=== PATIENT | male | born 1940 | race Caucasian/White ===

== ENCOUNTER 2019-03-04 08:00 | Outpatient (CLI) | payer MEDICARE, OTHER ==
[2019-03-04 19:08] LABS: ALBUMIN 3.7 g/dL (3.2-5.5); ALBUMIN/GLOBULIN RATIO 1.1 (1.0-2.2); BILIRUBIN,TOTAL 0.7 mg/dL (0.2-1.0); CALCIUM 9.3 mg/dL (8.5-10.3); CREATININE 0.6 mg/dL (0.6-1.2); TOTAL PROTEIN 7.2 g/dL (6.7-8.2)
[2019-03-04 19:12] LABS: BASOPHILS % (AUTO) 0.5 %; EOSINOPHILS # (AUTO) 0.1 10^3/uL (0.0-0.7); EOSINOPHILS % (AUTO) 0.8 %; HGB - HEMOGLOBIN 12.7 g/dL (14.0-18.0); LYMPHOCYTES # (AUTO) 1.1 10^3/uL (1.5-3.5); LYMPHOCYTES % (AUTO) 13.3 %; MEAN CORPUSCULAR HEMOGLOBIN 31.9 pg (27.0-31.0); MEAN CORPUSCULAR HGB CONC 33.3 g/dL (32.0-36.0); MEAN CORPUSCULAR VOLUME 95.9 fL (80.0-94.0); MEAN PLATELET VOLUME 7.6 fL (7.4-11.4); MONOCYTES # (AUTO) 0.6 10^3/uL (0.0-1.0); MONOCYTES % (AUTO) 6.7 %; NEUTROPHILS # (AUTO) 6.6 10^3/uL (1.5-6.6); NEUTROPHILS % (AUTO) 78.7 %; PLT - PLATELET COUNT 217 10^3/uL (130-450); RED BLOOD COUNT 3.97 10^6/uL (4.70-6.10); RED CELL DISTRIBUTION WIDTH 15.5 % (12.0-15.0); WHITE BLOOD COUNT 8.4 x10^3/uL (4.8-10.8)
== END 2019-03-04 08:01 | disposition home or self-care (01) ==
LOC: LAB.WCP 08:00
PROVIDERS: ATTEND Physician Assistant
DX: E22.2 Syndrome of inappropriate secretion of antidiuretic hormone (principal)
CPT/HCPCS: 36415; 80053; 85025

== ENCOUNTER 2019-03-09 18:45 | Emergency (ER) | payer MEDICARE, OTHER ==
[2019-03-09 19:23] LABS: BILIRUBIN,URINE NEGATIVE (NEGATIVE); CLARITY,URINE CLOUDY (CLEAR); GLUCOSE, URINE (UA) NEGATIVE (NEGATIVE); KETONES,URINE (UA) NEGATIVE (NEGATIVE); LEUKOCYTE ESTERASE, URINE NEGATIVE (NEGATIVE); NITRITE,URINE NEGATIVE (NEGATIVE); OCCULT BLOOD,URINE NEGATIVE (NEGATIVE); PH,URINE 5.5 PH (5.0-7.5); PROTEIN,URINE NEGATIVE (NEGATIVE); UROBILINOGEN,URINE 0.2 (NORMAL) E.U./dL (NORMAL)
[2019-03-09 19:37] LABS: AMORPHOUS SEDIMENT,UR Marked /LPF; BACTERIA,URINE None Seen /HPF (None Seen); RBC,URINE None Seen /HPF (0-5); SQUAMOUS EPITHELIAL CELL,UR NONE SEEN (<= Few)
[2019-03-09 19:38] LABS: MUCUS,URINE Few Strands
[2019-03-09 19:48] LABS: BASOPHILS % (AUTO) 0.5 %; EOSINOPHILS # (AUTO) 0.1 10^3/uL (0.0-0.7); EOSINOPHILS % (AUTO) 1.1 %; HGB - HEMOGLOBIN 12.6 g/dL (14.0-18.0); LYMPHOCYTES # (AUTO) 1.3 10^3/uL (1.5-3.5); LYMPHOCYTES % (AUTO) 18.4 %; MEAN CORPUSCULAR HEMOGLOBIN 32.5 pg (27.0-31.0); MEAN CORPUSCULAR HGB CONC 34.4 g/dL (32.0-36.0); MEAN CORPUSCULAR VOLUME 94.4 fL (80.0-94.0); MEAN PLATELET VOLUME 7.3 fL (7.4-11.4); MONOCYTES # (AUTO) 0.5 10^3/uL (0.0-1.0); NEUTROPHILS # (AUTO) 5.3 10^3/uL (1.5-6.6); PLT - PLATELET COUNT 187 10^3/uL (130-450); RED BLOOD COUNT 3.88 10^6/uL (4.70-6.10); RED CELL DISTRIBUTION WIDTH 15.1 % (12.0-15.0); WHITE BLOOD COUNT 7.3 x10^3/uL (4.8-10.8)
[2019-03-09 19:59] LABS: ALBUMIN 3.7 g/dL (3.2-5.5); ALBUMIN/GLOBULIN RATIO 1.1 (1.0-2.2); BILIRUBIN,TOTAL 0.9 mg/dL (0.2-1.0); CALCIUM 9.2 mg/dL (8.5-10.3); CREATININE 0.8 mg/dL (0.6-1.2)
--- NOTE | 2019-03-09 23:53 | ED Physician Documentation ---
PD HPI ALTERED MENTAL STATUS - Stated complaint Stated Complaint: CHANGE IN MENTAL STATUS - Chief complaint Chief Complaint: Neuro - History obtained from History obtained from: Patient, Family - History of Present Illness Timing - onset: How many weeks ago (2) Timing - duration: Weeks (2) Timing - details: Gradual onset, Still present, Waxing and waning Quality / character: Other (flat affect) Associated symptoms: No: Fever, Headache, Stiff neck, Dyspnea, Cough, NVD, Urinary sx, General weakness, Focal weakness, Seizure activity, Syncope Contributing factors: No: Anticoagulated Basline status: Alert and oriented X 3, Ambulatory, Independent Similar symptoms before: Diagnosis (metabolic encephalopathy) Recently seen: Clinic, Admitted - Additional information Additional information: 78-year-old male who is been a long time visitor to [facility] and has lived in [place] for the past 45 years has moved to [facility] after selling his home. He has had some issues with urinary tract infection recurring and requiring admission to the hospital. During those hospitalizations he was noted to have some change in his mental status and he was noted at that time to be confused. His states that now she is not finding that he is confused at all and answers all questions appropriately but has a very flat affect and she is concerned that he has a recurrence of this infection. Review of Systems Constitutional: denies: Fever Eyes: denies: Decreased vision Ears: denies: Ear pain Nose: denies: Rhinorrhea / runny nose, Congestion Throat: denies: Sore throat Cardiac: denies: Chest pain / pressure, Palpitations Respiratory: denies: Dyspnea, Cough GI: denies: Abdominal Pain, Nausea, Vomiting : denies: Dysuria, Frequency Skin: denies: Rash Musculoskeletal: denies: Neck pain, Back pain, Extremity pain Neurologic: denies: Generalized weakness, Focal weakness, Numbness, Difficulty speaking, Near syncope, Confused, Altered mental status, Headache, Head injury, LOC Psychiatric: denies: Depressed PD PAST MEDICAL HISTORY - Past Medical History Past Medical History: Yes Cardiovascular: Congestive heart failure, Hypertension, High cholesterol, Coronary artery disease, Peripheral Vascular Disease, [place] Respiratory: None Neuro: None Endocrine/Autoimmune: Type 2 diabetes GI: GERD : Benign prostate hypertrophy, Nocturia, Frequency HEENT: Other Psych: None Musculoskeletal: None Derm: None - Past Surgical History Past Surgical History: Yes General: Appendectomy Cardiovascular: CABG, Coronary stent, Angioplasty HEENT: Cataracts, Tonsil/Adenoidectomy - Present Medications Home Medications: Ambulatory Orders Medication Instructions Recorded Confirmed Aspirin Chewable [[place] Richard 81 mg PO DAILY 03/09/19 03/09/19 Aspirin] Atenolol 50 mg PO 03/09/19 Atorvastatin [Lipitor] 0 mg 03/09/19 Hydrochlorothiazide 12.5 mg PO 03/09/19 Lactobacillus Acidophilus 1 each PO 03/09/19 [Probiotic Acidophilus] Lansoprazole 30 mg PO 03/09/19 Methenamine Hippurate 1 gm PO 03/09/19 Ramipril 10 mg PO 03/09/19 Sodium Chloride 1 gm PO 03/09/19 Tamsulosin [Flomax] 0.4 mg PO DAILY 03/09/19 03/09/19 amLODIPine [Norvasc] 5 mg PO ONCE 03/09/19 03/09/19 - Allergies Allergies/Adverse Reactions: Allergies Allergy/AdvReac Type Severity Reaction Status Date / Time No Known Drug Allergies Allergy Verified 03/09/19 19:05 - Social History Does the pt smoke?: Yes Smoking Status: Current every day smoker Does the pt drink ETOH?: Yes Does the pt have substance abuse?: No - Immunizations Immunizations are current?: No Immunizations: TDAP >10years/unknown - POLST Patient has POLST: Yes PD ED PE NORMAL - Vitals Vital signs reviewed: Yes (hypertensive ) - General General: Alert and oriented X 3, No acute distress, Well developed/nourished, Other (super flat affect but perfect answers. ) - HEENT HEENT: Atraumatic, PERRL, EOMI - Neck Neck: Supple, no meningeal sign, No bony TTP - Cardiac Cardiac: RRR, No murmur - Respiratory Respiratory: No respiratory distress, Clear bilaterally - Abdomen Abdomen: Soft, Non tender - Back Back: No CVA TTP, No spinal TTP - Derm Derm: Normal color, Warm and dry, No rash - Extremities Extremities: No deformity, No edema - Neuro Neuro: Alert and oriented X 3, podopediatrician 2-12 intact, No motor deficit, No sensory deficit, Normal speech Eye Opening: Spontaneous Motor: Obeys Commands Verbal: Oriented GCS Score: 15 - Psych Psych: Normal mood, Other (affect is super flat ) Results - Vitals Vitals: Vital Signs - 24 hr 03/09/19 03/09/19 03/09/19 19:03 20:58 23:33 Temperature 37 C 36.9 C Heart Rate 97 80 87 Respiratory 20 15 17 Rate Blood Pressure 131/80 H 147/78 H 153/92 H O2 Saturation 96 96 96 03/10/19 03/10/19 01:24 02:45 Temperature 36.5 C 36.6 C Heart Rate 75 67 Respiratory 14 Rate Blood Pressure 140/85 H 127/80 O2 Saturation 96 99 Oxygen O2 Source Room air - Labs Labs: Laboratory Tests 03/09/19 03/09/19 03/09/19 17:00 19:41 19:41 WBC 7.3 RBC 3.88 L Hgb 12.6 L Hct 36.6 L MCV 94.4 H MCH 32.5 H MCHC 34.4 RDW 15.1 H Plt Count 187 MPV 7.3 L Neut # (Auto) 5.3 Lymph # (Auto) 1.3 L [place] # (Auto) 0.5 Eos # (Auto) 0.1 Baso # (Auto) 0.0 Absolute Nucleated RBC 0.00 Nucleated RBC % 0.0 Sodium 142 Potassium 3.8 Chloride 106 Carbon Dioxide 24 Anion Gap 12.0 BUN 20 Creatinine 0.8 Estimated GFR (MDRD) 93 Glucose 162 H Calcium 9.2 Total Bilirubin 0.9 AST 22 ALT 25 Alkaline Phosphatase 82 Total Protein 7.0 Albumin 3.7 Globulin 3.3 Albumin/Globulin Ratio 1.1 Lipase 71 H Urine Color YELLOW Urine Clarity CLOUDY Urine pH 5.5 Ur Specific [place] 1.020 Urine Protein NEGATIVE Urine Glucose (UA) NEGATIVE Urine Ketones NEGATIVE Urine Occult Blood NEGATIVE Urine Nitrite NEGATIVE Urine Bilirubin NEGATIVE Urine Urobilinogen 0.2 (NORMAL) Ur Leukocyte Esterase NEGATIVE Urine RBC None Seen Urine WBC 0-3 Ur Squamous Epith Cells NONE SEEN Amorphous Sediment Marked Urine Bacteria None Seen Urine Mucus Few Strands Ur Microscopic Review INDICATED Urine Culture Comments NOT INDICATED Procedures - IVC sono (time) 2345 Bedside IVC sono: IVC measures (cm) (1.33), Significant dehydration PD MEDICAL DECISION MAKING - ED course Complexity details: reviewed old records, reviewed results, re-evaluated patient, considered differential, d/w patient, d/w family ED course: 78 y/o male with flat affect. Registers well otherwise. The patient does not have any cogwheel rigidity to his upper extremities to indicate Parkinson's and he does not appear to have confusion or dementia. He does appear withdrawn and his affect and he is dehydrated on interrogation of the inferior vena cava. He is administered saline and after discussion with he and his about the nature of their moved to [facility] and what it means to him it was evident that he has significant feelings about this change in his life. When this was fully acknowledged and the patient was able [place] seemed to lift the patient's affect. I considered rare neurologic conditions of possibility for the patient's blunted affect but after full consideration it does appear that his flattened affect today is the finding and there does appear to be a reason for this. He does have follow up with a primary here on [facility]. Departure - Departure Disposition: 01 Home, Self Care Clinical Impression: Stress reaction causing mixed disturbance of emotion and conduct Condition: Stable Instructions: ED Stress React Follow-Up: Halle Wiggins PA [Primary Care Provider] - Discharge Date/Time: 03/10/19 02:47
[2019-03-10] MEDS ORDERED: SODIUM CHLORIDE 0.9% 1,000 ML IV ONE (00:37)
[2019-03-10 03:12] VITALS: BP 127/80
== END 2019-03-10 02:47 | disposition home or self-care (01) ==
LOC: ED 18:45
DX: F43.8 Other reactions to severe stress (principal); F91.8 Other conduct disorders; E86.0 Dehydration; I10 Essential (primary) hypertension; E11.51 Type 2 diabetes mellitus with diabetic peripheral angiopathy without gangrene; F17.200 Nicotine dependence, unspecified, uncomplicated; Z79.82 Long term (current) use of aspirin
CPT/HCPCS: 36415; 80053; 81001; 81003; 83690; 85025; 87086; 96360; 99283; 99284

== ENCOUNTER 2019-03-12 18:07 | Outpatient (CLI) | payer MEDICARE, OTHER | END 2019-03-12 18:08 | disposition critical access hospital (66) | LOC: EMS 18:07 | PROVIDERS: ATTEND Surgery | DX: R46.4 Slowness and poor responsiveness (principal); R53.1 Weakness | CPT/HCPCS: A0425; A0429 ==

== ENCOUNTER 2019-03-12 18:33 | Observation (INO) | payer MEDICARE, OTHER ==
[2019-03-12 19:01] LABS: BASOPHILS % (AUTO) 0.2 %; EOSINOPHILS % (AUTO) 0.4 %; HGB - HEMOGLOBIN 12.1 g/dL (14.0-18.0); LYMPHOCYTES # (AUTO) 0.9 10^3/uL (1.5-3.5); LYMPHOCYTES % (AUTO) 10.3 %; MEAN CORPUSCULAR HEMOGLOBIN 31.4 pg (27.0-31.0); MEAN CORPUSCULAR HGB CONC 33.2 g/dL (32.0-36.0); MEAN CORPUSCULAR VOLUME 94.5 fL (80.0-94.0); MEAN PLATELET VOLUME 9.6 fL (7.4-11.4); MONOCYTES # (AUTO) 0.4 10^3/uL (0.0-1.0); MONOCYTES % (AUTO) 5.1 %; NEUTROPHILS % (AUTO) 83.6 %; PLT - PLATELET COUNT 176 10^3/uL (130-450); RED BLOOD COUNT 3.85 10^6/uL (4.70-6.10); RED CELL DISTRIBUTION WIDTH 14.6 % (12.0-15.0); WHITE BLOOD COUNT 8.4 x10^3/uL (4.8-10.8)
[2019-03-12 19:16] LABS: ACETAMINOPHEN < 10 ug/mL (10-30); ALBUMIN 3.9 g/dL (3.2-5.5); ALBUMIN/GLOBULIN RATIO 1.4 (1.0-2.2); ALKALINE PHOSPHATASE 74 IU/L (42-121); ALT ALANINE AMINOTRANSFERASE 23 IU/L (10-60); AST ASPARTATE AMINOTRANSFERASE 19 IU/L (10-42); BILIRUBIN,TOTAL 1.2 mg/dL (0.2-1.0); BUN - BLOOD UREA NITROGEN 14 mg/dL (6-20); CALCIUM 9.1 mg/dL (8.5-10.3); CARBON DIOXIDE - CO2 24 mmol/L (21-32); CHLORIDE 105 mmol/L (101-111); CREATININE 0.7 mg/dL (0.6-1.2); GFR - MDRD 109 (>89); GLUCOSE 170 mg/dL (70-100); LIPASE 63 U/L (22-51); SALICYLATE < 6.0 mg/dL; SODIUM 139 mmol/L (135-145); TOTAL PROTEIN 6.7 g/dL (6.7-8.2)
--- NOTE | 2019-03-12 19:16 | ED Physician Documentation ---
History of Present Illness - Stated complaint Stated Complaint: WEAKNESS - Chief complaint Chief Complaint: Neuro - History obtained from History obtained from: Patient, Family - History of Present Illness Timing: Today Pain level max: 0 Pain level now: 0 - Additonal information Additional information: 78-year-old male presents to the emergency department with an episode of altered mental status and falling to the left today. states that his face became very flat, his arms and legs became "stiffer than usual" and when he walked he would fall to the left. This lasted approximately 30 minutes. Now resolved. Had similar symptoms a few days ago, thought to be possible stress reaction? No history of stroke. Patient is a poor historian, but is a very good historian. 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 Has had chronic recurrent UTIs as well Nothing made this better or worse Review of Systems Ten Systems: 10 systems reviewed and negative Constitutional: denies: Fever, Chills Eyes: denies: Decreased vision Ears: denies: Ear pain Nose: denies: Rhinorrhea / runny nose, Congestion Throat: denies: Sore throat Cardiac: denies: Chest pain / pressure Respiratory: denies: Cough GI: denies: Nausea, Vomiting, Diarrhea : denies: Dysuria Skin: denies: Rash Musculoskeletal: denies: Neck pain, Back pain Neurologic: denies: Numbness, Syncope, Headache PD PAST MEDICAL HISTORY - Past Medical History Past Medical History: Yes Cardiovascular: Congestive heart failure, Hypertension, High cholesterol, Coronary artery disease, Peripheral Vascular Disease, [place] Respiratory: None Neuro: None Endocrine/Autoimmune: Type 2 diabetes GI: GERD : Benign prostate hypertrophy, Nocturia, Frequency HEENT: Other Psych: None Musculoskeletal: None Derm: None - Past Surgical History Past Surgical History: Yes General: Appendectomy Cardiovascular: CABG, Coronary stent, Angioplasty HEENT: Cataracts, Tonsil/Adenoidectomy - Present Medications Home Medications: Ambulatory Orders Medication Instructions Recorded Confirmed Aspirin Chewable [[facility] Richard 81 mg PO DAILY 03/09/19 03/12/19 Aspirin] Atenolol 50 mg PO DAILY 03/09/19 03/12/19 Atorvastatin [Lipitor] 40 mg PO DAILY PM 03/09/19 03/12/19 Lansoprazole 30 mg PO BID 03/09/19 03/12/19 Ramipril 10 mg PO DAILY 03/09/19 03/12/19 amLODIPine [Norvasc] 5 mg PO BID 03/09/19 03/12/19 - Allergies Allergies/Adverse Reactions: Allergies Allergy/AdvReac Type Severity Reaction Status Date / Time No Known Drug Allergies Allergy Verified 03/12/19 18:41 - Social History Does the pt smoke?: Yes Smoking Status: Current every day smoker Does the pt drink ETOH?: Yes Does the pt have substance abuse?: No - Immunizations Immunizations are current?: No Immunizations: TDAP >10years/unknown - POLST Patient has POLST: Yes Results - Vitals Vitals: Vital Signs - 24 hr 03/12/19 03/12/19 18:38 20:00 Temperature 37.2 C Heart Rate 81 65 Respiratory 24 21 Rate Blood Pressure 156/82 H 141/83 H O2 Saturation 96 94 Oxygen O2 Source Room air - EKG (time done) 1840 Rate: Rate (enter#) (72) Rhythm: NSR Intervals: Normal OK, RBBB - Labs Labs: Laboratory Tests 03/12/19 03/12/19 03/12/19 18:55 18:55 18:55 WBC 8.4 RBC 3.85 L Hgb 12.1 L Hct 36.4 L MCV 94.5 H MCH 31.4 H MCHC 33.2 RDW 14.6 Plt Count 176 MPV 9.6 Neut # (Auto) 7.0 H Lymph # (Auto) 0.9 L [place] # (Auto) 0.4 Eos # (Auto) 0.0 Baso # (Auto) 0.0 Absolute Nucleated RBC 0.00 Nucleated RBC % 0.0 Sodium 139 Potassium 3.4 L Chloride 105 Carbon Dioxide 24 Anion Gap 10.0 BUN 14 Creatinine 0.7 Estimated GFR (MDRD) 109 Glucose 170 H Calcium 9.1 Total Bilirubin 1.2 H AST 19 ALT 23 Alkaline Phosphatase 74 Total Protein 6.7 Albumin 3.9 Globulin 2.8 Albumin/Globulin Ratio 1.4 Lipase 63 H TSH 1.29 Urine Color Urine Clarity Urine pH Ur Specific [place] Urine Protein Urine Glucose (UA) Urine Ketones Urine Occult Blood Urine Nitrite Urine Bilirubin Urine Urobilinogen Ur Leukocyte Esterase Ur Microscopic Review Urine Culture Comments Salicylates < 6.0 Urine Opiates Screen Ur Oxycodone Screen Urine Methadone Screen Ur Propoxyphene Screen Acetaminophen < 10 L Ur Barbiturates Screen Ur Tricyclics Screen Ur Phencyclidine Scrn Ur Amphetamine Screen U Methamphetamines Scrn U Benzodiazepines Scrn Urine Cocaine Screen U Cannabinoids Screen Ethyl Alcohol < 5.0 03/12/19 19:20 WBC RBC Hgb Hct MCV MCH MCHC RDW Plt Count MPV Neut # (Auto) Lymph # (Auto) [place] # (Auto) Eos # (Auto) Baso # (Auto) Absolute Nucleated RBC Nucleated RBC % Sodium Potassium Chloride Carbon Dioxide Anion Gap BUN Creatinine Estimated GFR (MDRD) Glucose Calcium Total Bilirubin AST ALT Alkaline Phosphatase Total Protein Albumin Globulin Albumin/Globulin Ratio Lipase TSH Urine Color YELLOW Urine Clarity CLEAR Urine pH 5.5 Ur Specific [place] <=1.005 Urine Protein NEGATIVE Urine Glucose (UA) NEGATIVE Urine Ketones NEGATIVE Urine Occult Blood NEGATIVE Urine Nitrite NEGATIVE Urine Bilirubin NEGATIVE Urine Urobilinogen 0.2 (NORMAL) Ur Leukocyte Esterase NEGATIVE Ur Microscopic Review NOT INDICATED Urine Culture Comments NOT INDICATED Salicylates Urine Opiates Screen NEGATIVE Ur Oxycodone Screen NEGATIVE Urine Methadone Screen NEGATIVE Ur Propoxyphene Screen NEGATIVE Acetaminophen Ur Barbiturates Screen NEGATIVE Ur Tricyclics Screen NEGATIVE Ur Phencyclidine Scrn NEGATIVE Ur Amphetamine Screen NEGATIVE U Methamphetamines Scrn NEGATIVE U Benzodiazepines Scrn NEGATIVE Urine Cocaine Screen NEGATIVE U Cannabinoids Screen NEGATIVE Ethyl Alcohol - Rads (name of study) Head CT Radiology: Prelim report reviewed, EMP read contemporaneously, See rad report (No acute findings. Mild to moderate brain atrophy, mild scattered white matter disease with mild dense atherosclerotic disease) PD MEDICAL DECISION MAKING - ED course Complexity details: reviewed results, re-evaluated patient, considered differential, d/w patient, d/w family ED course: 78-year-old male with altered mental status of unclear etiology. He also lists to the left side and has trouble walking, possible TIA? Possible partial seizures? Possible Parkinson's or other movement disorder? Will place in observation for further evaluation and likely MRI. Discussed the case with Dr. Peterson, hospitalist who accepts. This document was made in part using voice recognition software. While efforts are made to proofread this document, sound alike and grammatical errors may occur. Departure - Departure Disposition: ED Place in Observation Clinical Impression: TIA (transient ischemic attack) Condition: Good Discharge Date/Time: 03/12/19 20:15 NIHSS - Time Time: 19:00 - Level of Consciousness Level of consciousness: (0) Alert, Keenly responsive LOC Questions: (0) Answers both Q's correct LOC Commands: (0) Performs both correctly - Gaze Best Gaze: (0) Normal - Visual Visual: (0) No loss - Facial Palsy Facial Palsy: (0) Normal, symmetrical movement - Motor Arms (both separate) Motor Arm (right): (0) No drift Motor Arm (left): (0) No drift - Motor Legs (both separate) Motor Leg (right): (0) No drift Motor Leg (left): (0) No drift - Limb Ataxia Limb Ataxia: (0) Absent - Sensory Sensory: (0) Normal - Best Language Best Language: (0) No aphasia - Dysarthria Dysarthria: (0) Normal - Extinction and Inattention (formally neg Extinction and inattention: (0) No abnormality - Total Score/Results Total Score/Result: 0
[2019-03-12 19:27] LABS: MUDS CUTOFF CONCENTRATIONS CUTOFF CONC BELOW:
[2019-03-12 19:35] LABS: BILIRUBIN,URINE NEGATIVE (NEGATIVE); GLUCOSE, URINE (UA) NEGATIVE (NEGATIVE); KETONES,URINE (UA) NEGATIVE (NEGATIVE); LEUKOCYTE ESTERASE, URINE NEGATIVE (NEGATIVE); NITRITE,URINE NEGATIVE (NEGATIVE); OCCULT BLOOD,URINE NEGATIVE (NEGATIVE); PH,URINE 5.5 PH (5.0-7.5); PROTEIN,URINE NEGATIVE (NEGATIVE); UROBILINOGEN,URINE 0.2 (NORMAL) E.U./dL (NORMAL)
[2019-03-12 19:38] LABS: CLARITY,URINE CLEAR (CLEAR)
[2019-03-12 19:52] LABS: AMPHETAMINE SCREEN,URINE NEGATIVE (NEGATIVE); BENZODIAZEPINES SCREEN, URINE NEGATIVE (NEGATIVE); COCAINE SCREEN URINE NEGATIVE (NEGATIVE); METHADONE SCREEN, URINE NEGATIVE (NEGATIVE); METHAMPHETAMINES SCREEN, URINE NEGATIVE (NEGATIVE); OPIATE SCREEN, URINE NEGATIVE (NEGATIVE); OXYCODONE SCREEN, URINE NEGATIVE (NEGATIVE); PROPOXYPHENE SCREEN, URINE NEGATIVE (NEGATIVE); TRICYCLIC ANTIDEPRESSANT,URINE NEGATIVE (NEGATIVE)
--- NOTE | 2019-03-12 20:05 | CT Report ---
Reason: ALOC, falls to the L Procedure Date: 03/12/2019 Accession Number: [id number] / [id number] Procedure: CT - HEAD WO CPT Code: FULL RESULT: EXAM: CT HEAD EXAM DATE: 03/12/2019 07:39 PM. CLINICAL HISTORY: Change in level of consciousness, falling to the left. COMPARISON: None. TECHNIQUE: Multiaxial CT images were obtained from the foramen magnum to the vertex. Reformats: Sagittal and coronal. IV contrast: None. In accordance with CT protocol optimization, one or more of the following dose reduction techniques were utilized for this exam: automated exposure control, adjustment of mA and/or KV based on patient size, or use of iterative reconstructive technique. Findings: Relevant images are indicated (image number, series number). There is no hemorrhage, mass or midline shift. Mild/moderate renal atrophy, mild scattered white matter disease, no acute arterial thrombosis of the major arteries. Basal cisterns are patent. Orbital contents negative mild dense calcific atherosclerotic disease. Skull intact, paranasal sinuses, mastoid air cells negative. Impressions: 1. No acute findings. 2. Mild/moderate brain atrophy, mild scattered white matter disease with mild dense atherosclerotic disease. RADIA
[2019-03-12] MEDS ORDERED: SODIUM CHLORIDE FLUSH 0.9% 10 ML SYRINGE IVP PRN (20:15)
[2019-03-12] MEDS ORDERED: ASPIRIN EC 325 MG TABLET PO SCH (20:28)
[2019-03-12] MEDS ORDERED: ASPIRIN EC 325 MG TABLET PO ONE (21:00)
--- NOTE | 2019-03-12 23:05 | HISTORY & PHYSICAL EXAMINATION ---
Chief Complaint - Chief Complaint Chief Complaint: neurologic changes History of Present Illness - Admitted From Admitted From:: [facility] ED - History Obtained From Records Reviewed: yes History obtained from: patient and spouse - History of Present Illness HPI Comment/Other: Patient seen on 03/12/19 at 2200pm Patient is a 78 y/o male who was brought to the ED by EMS for various acute neurologic changes which are transient in nature, occuring daily for the past 2 weeks. These consist of a flat affect, eyes appear void of life, arms just slump to his side as if they don't belong to his body, his gait is shuffling and he deviates to the left when he walks. He is usually fully alert and oriented during this episode and able to follow commands. This afternoon he experienced another episode when they were getting ready to leave there house. His was barely able to help him to the bedroom where he just slumped into the bed. He seemed confused at the time He had an episode on Saturday at an appointment. He was sent to [facility] ED where he was evaluated and discharged because his symptoms had resolved. It was thought to be due to stress at the time. His reports that he was recently admitted at [facility] for similar symptoms and underwent a work up which was mainly negative. He has history of frequent UTI with the last urine cultures being positive for ESBL + bacteria. He was on Invanz for a total of 10 days. 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 for which he had a CABGX4 then 23years later he underwent CABGX5. He was recently found to have a 4.5cm AAA. History - Past Medical History Cardiovascular: reports: Hypertension, High cholesterol, Coronary artery disease, Peripheral Vascular Disease, [place] Respiratory: reports: None Neuro: reports: None GI: reports: GERD : reports: Benign prostate hypertrophy, Nocturia, Frequency HEENT: reports: Other Psych: reports: None Musculoskeletal: reports: None Derm: reports: None MRSA Hx?: No Other Past Medical History: Extensive exposure to agent orange - Past Surgical History General: reports: Appendectomy Cardiovascular: reports: CABG, Coronary stent, Angioplasty HEENT: reports: Tonsil/Adenoidectomy - Family & Social History Family History Comment/Other: Father: Lymphoma. Brother 1: stomach cancer. Brother 2: prostate and colon cancer Living arrangement: At home Living Situation: With spouse/s.o. Social History Notes: Quit smoking in 1978. Smoked 3ppd X20 years. Rare alcohol consumption. No illicit drug use - POLST Patient has POLST: Yes POLST Status: DNR Meds/Allgy - Home Medications Home Medications: Ambulatory Orders Medication Instructions Recorded Confirmed Aspirin Chewable [St Richard 81 mg PO DAILY 03/09/19 03/12/19 Aspirin] Atenolol 50 mg PO DAILY 03/09/19 03/12/19 Atorvastatin [Lipitor] 40 mg PO DAILY PM 03/09/19 03/12/19 Lansoprazole 30 mg PO BID 03/09/19 03/12/19 Ramipril 10 mg PO DAILY 03/09/19 03/12/19 amLODIPine [Norvasc] 5 mg PO BID 03/09/19 03/12/19 - Allergies Allergies/Adverse Reactions: Allergies Allergy/AdvReac Type Severity Reaction Status Date / Time No Known Drug Allergies Allergy Verified 03/12/19 18:41 Review of Systems - Constitutional Constitutional: denies: Fever, Chills, Malaise, Weakness, Diaphoresis - Eyes Eyes: reports: Blurred vision. denies: Vision loss, Dipolpia - Ears, Nose & Throat Ears, Nose & Throat: denies: Tinnitus, Vertigo, Sore throat - Cardiovascular Cariovascular: reports: Irregular heart rate (regularly irregular). denies: Chest pain, Edema, Lightheadedness, Syncope, Exertional dyspnea - Respiratory Respiratory: denies: Wheezing, Snoring, SOB at rest, SOB with exertion - Gastrointestinal Gastrointestinal: denies: Abdominal pain, Abdominal distention, Constipation, Black stools - Genitourinary Genitourinary: denies: Dysuria, Frequency, Urgency, Incontinence, Flank pain - Musculoskeletal Musculoskeletal: denies: Muscle pain, Back pain, Joint pain - Integumentary Integumentary: denies: Rash, Pruritis, Lesions - Neurological Neurological: reports: Abnormal gait, Incoordination, Slurred speech. denies: Headache, Dizziness, Numbness, Memory problems, Seizures - Psychiatric Psychiatric: denies: Depression, Anxiety - Endocrine Endocrine: denies: Polyuria, Polydypsia - Hematologic/Lymphatic Hematologic/Lymphatic: denies: Anemia, Bruising, Petechiae Prior Level of Functionality: Patient is independent of activities of daily living. Lives with . Still drives. Walks unaided. Exam - Vital Signs Vital Signs: Vital Signs x48h Temp Pulse Pulse Resp BP BP Pulse Ox 03/12/19 20:47 37.0 C 72 20 146/70 H 96 03/12/19 20:00 65 21 141/83 H 94 03/12/19 18:38 37.2 C 81 24 156/82 H 96 - Physical Exam General Appearance: positive: No acute distress, Alert, Other (flat affect) Eyes Bilateral: positive: Normal inspection, PERRL, EOMI ENT: positive: ENT inspection nml, No signs of dehydration Neck: positive: Nml inspection, No JVD, Trachea midline Respiratory: positive: Chest non-tender, No respiratory distress, Breath sounds nml. negative: Wheezes, Rales, Rhonchi Cardiovascular: positive: No murmur, Other (regularly irregular) Abdomen: positive: Non-tender, No organomegaly, Nml bowel sounds, No distention. negative: Guarding, Rebound Back: positive: Nml inspection Skin: positive: Color nml, No rash, Warm Extremities: positive: Non-tender, Full ROM, Nml appearance, Pedal edema Neurologic/Psychiatric: positive: Oriented x3, CN's nml (2-12), Depressed mood/affect (flat affect), Other (finger to nose test positive heel to mccarty negative Rapid alternation of hands negative) Conclusion/Plan - Problem List (1) TIA (transient ischemic attack) Conclusion/Plan: CVA r/o MRI brain w/ and w/o contrast ordered This had been initially planned for 03/17/19 2D echo, Lipid panel, HgA1c Neuro checks qshift. Patient Previous MRI of brain, Carotid doppler request from most recent stay in [facility] (2) Hypertension Conclusion/Plan: On atenolol, ramipril and norvasc Will continue once verified (3) Hyperlipidemia Conclusion/Plan: On atorvastatin (4) GERD (gastroesophageal reflux disease) Conclusion/Plan: Protonix ordered (5) Hx of coronary artery disease Conclusion/Plan: s/p CABG. On aspirin - Lab Results Lab results reviewed: Yes Fish Bones: 03/13/19 05:15 03/13/19 05:15 - Diagnostic Imaging Results Diagnostic Imaging Results: positive: Final report reviewed - EKG Results EKG Interpreted Independently: Yes EKG Comparison: Unchanged from prior EKG Core Measures - Anticipated LOS I expect patient to be DC'd or transferred within 96 hours.: Yes - DVT/VTE - Prophylaxis VTE/DVT Device ordered at admit?: Yes - Stroke - Rehab Assessment Rehab services assessment to be ordered?: Yes - AMI - Statin at Admit Aspirin Prescribed on Admit: Yes
[2019-03-13 05:43] LABS: BASOPHILS % (AUTO) 0.5 %; EOSINOPHILS # (AUTO) 0.1 10^3/uL (0.0-0.7); HGB - HEMOGLOBIN 12.4 g/dL (14.0-18.0); LYMPHOCYTES # (AUTO) 1.4 10^3/uL (1.5-3.5); LYMPHOCYTES % (AUTO) 17.5 %; MEAN CORPUSCULAR HEMOGLOBIN 31.2 pg (27.0-31.0); MEAN CORPUSCULAR HGB CONC 32.4 g/dL (32.0-36.0); MEAN CORPUSCULAR VOLUME 96.2 fL (80.0-94.0); MEAN PLATELET VOLUME 9.7 fL (7.4-11.4); MONOCYTES # (AUTO) 0.6 10^3/uL (0.0-1.0); NEUTROPHILS # (AUTO) 5.9 10^3/uL (1.5-6.6); NEUTROPHILS % (AUTO) 72.6 %; PLT - PLATELET COUNT 180 10^3/uL (130-450); RED BLOOD COUNT 3.98 10^6/uL (4.70-6.10); RED CELL DISTRIBUTION WIDTH 14.4 % (12.0-15.0); WHITE BLOOD COUNT 8.1 x10^3/uL (4.8-10.8)
[2019-03-13 05:58] LABS: HB2 TOTAL 13.1 g/dL; HEMOGLOBIN A1C 0.66 g/dL; HEMOGLOBIN A1C % 6.8 % (4.6-6.2)
[2019-03-13 06:04] LABS: BUN - BLOOD UREA NITROGEN 11 mg/dL (6-20); CARBON DIOXIDE - CO2 27 mmol/L (21-32); CHLORIDE 102 mmol/L (101-111); CHOL/HDL RATIO 4.2 (<5.0); CHOLESTEROL 130 mg/dL; CREATININE 0.8 mg/dL (0.6-1.2); GFR - MDRD 93 (>89); GLUCOSE 131 mg/dL (70-100); HDL CHOLESTEROL 31 mg/dL; LDL CHOLESTEROL,CALCULATED 80 mg/dL; LDL/HDL RATIO 2.6 (<3.6); SODIUM 140 mmol/L (135-145); VLDL CHOLESTEROL 19 mg/dL
[2019-03-13] MEDS ORDERED: PANTOPRAZOLE 40 MG TABLET PO SCH (07:00)
[2019-03-13] MEDS: SODIUM CHLORIDE FLUSH 0.9% 10 ML SYRINGE IVP SCH ×3 (07:45→17:03)
[2019-03-13] MEDS ORDERED: POLYETHYLENE GLYCOL 3350 17 GM PACKET PO SCH (09:00)
[2019-03-13] MEDS ORDERED: amLODIPine 5 MG TABLET PO SCH (09:00)
[2019-03-13] MEDS ORDERED: ASPIRIN EC 325 MG TABLET PO SCH (09:00)
[2019-03-13] MEDS ORDERED: GADOBUTROL 10 MMOL/10 ML VIAL ONE (11:48)
[2019-03-13] MEDS ORDERED: GADOBUTROL 10 MMOL/10 ML VIAL IVP ONE (11:54)
--- NOTE | 2019-03-13 13:25 | MRI Report ---
Reason: TIA vs CVA Procedure Date: 03/13/2019 Accession Number: [id number] / [id number] Procedure: MRI - Brain W/WO CPT Code: FULL RESULT: EXAM: MRI BRAIN WITHOUT AND WITH CONTRAST EXAM DATE: 03/13/2019 12:46 PM. CLINICAL HISTORY: TIA vs CVA. Weakness. Change in level of consciousness. Falling to the left. COMPARISON: HEAD W/O 03/12/2019 7:37 PM. TECHNIQUE: Multiplanar, multisequence T1-weighted and fluid-sensitive MR sequences of the brain were performed. Sequences optimized for routine evaluation. Other: None. IV Contrast: 9 cc Gadavist. FINDINGS: Brain Volume: Age-related volume loss is present. Parenchyma: No acute hemorrhage, mass, or infarct. Mild confluent periventricular with scattered punctate deep and subcortical white matter T2/FLAIR bright signal is seen in the cerebral hemispheres and to a lesser extent brainstem. No cortical signal abnormality. Punctate focus of hypointense magnetic susceptibility is seen centrally in the left cerebellum and in the high paramedian left frontal lobe. These are consistent with foci of petechial microhemorrhage. No parenchymal hematoma. No abnormal enhancement. Ventricles/Cisterns: Mild age-related prominence to the ventricular system and overlying cortical sulci is seen. No hydrocephalus. No abnormal extra-axial fluid collection or hemorrhage. Orbits: Unremarkable. Note is made of bilateral lens removal. Sella Turcica: The pituitary gland, cavernous sinuses, suprasellar cistern and optic chiasm are unremarkable. IAC: Symmetric and unremarkable. Vasculature: Normal signal flow void is seen in the major arterial structures at the skull base. The left vertebral artery is dominant. The dural sinuses are patent and enhance normally. Sinuses: No acute sinus disease. Bones: No focal pathologic appearing marrow signal changes. Other: None. IMPRESSION: 1. No acute intracranial abnormality. No acute infarct, mass, hemorrhage, or abnormal enhancement. 2. Mild senescent change. Mild age-related volume loss. Mild white matter T2/FLAIR bright signal is seen. This is nonspecific. This can be seen secondary to small vessel ischemic change. RADIA
--- NOTE | 2019-03-13 17:32 | Discharge Plan ---
Discharge Plan Disposition: 01 Home, Self Care Condition: Fair Diet: Cardiac Activity Restrictions: Activity as Tolerated Shower Restrictions: No Driving Restrictions: Yes (You may not drive a vehicle because of the spells until cleared by MD) Instruction Topics: ED Hypotension Orthostatic, ED Hypotension All Causes, Diabetes Carbs, Log Blood Sugar Health Concerns: There have been repeat episodes of "absence" spells over the past 2 weeks Plan of Treatment: The new medication list and plan was reviewed with the patient and his . Care Goals: The patient will see Neurology and possibly Endocrinology to have further testing, medication adjustments to be able to return to independent function. Assessment: The patient agrees with and understands the plan. Additional Instructions or Follow Up instructions: You were in the hospital, in Observation status, to evaluate the recurrent "absence spells". We found no evidence of a stroke or mini stroke. There are mild changes on your brain imaging that show small vessel disease, which is common in a person of your age. The Echo ultrasound of your heart showed only mildly reduced heart function. We did not repeat the carotid Doppler exam here, since it was recently done at [facility], but a report of that was never sent to us here for review. Your blood pressure was normal here, even after being taken off many of your blood pressure medications. This means that you were intolerant to your current blood pressure medications. Many have been stopped; you should follow the new Medication List. Your blood pressure dropped as you stood which is a sign of "orthostatic hypotension". This means that you may be dehydrated. You are allowed to salt your food. Compression knee-high stockings use also helps this problem. The absence spells may be a type of seizure and you need follow-up with a Neurologist MEDARDO, for an EEG and further management. A summary of this hospital visit and referral from your provider should get you a Neurology appointment MEDARDO. You have been newly diagnosed with Diabetes Mellitus and the absence spells may also be a symptom of low blood sugar. This is particularly likely because you have severe protein-calorie malnutrition. Seeing your PCP or an drilling fluids specialist is necessary MEDARDO for management of your blood sugars. You may also come to the [facility] here for Diabetic education. YOU ARE BEING RESTRICTED FROM DRIVING A MOTOR VEHICLE. If you are found driving a vehicle, you could be arrested. You need to be cleared by a medical provider to resume driving. If you have new or worsening symptoms, call your PCP, Neurologist, Endocrinologi st or come to the ER. Follow-Up Care: [facility] - Diabetes Ed No Smoking: If you smoke, Please STOP! Call for help. Follow-up with: Halle Wiggins PA [Primary Care Provider] -
--- NOTE | 2019-03-13 18:12 | DISCHARGE SUMMARY ---
"Discharge Summary Admit Date: 03/12/19 Discharge Date: 03/13/19 Discharging Provider: Dr Desiree Fuentes Primary Care Provider: MARIA A Rush Code Status: Do Not Attempt Resuscitation Condition at Discharge: Stable Discharge Disposition: 01 Home, Self Care - DIAGNOSES Admission Diagnoses: 1) Absence-type spells, R/O TIAs 2) Hx HTN 3) Hx CAD Discharge Diagnoses with Status of Each Condition: 1) Near-syncope. Patient underwent evaluation for TIAs: A brain MRI with and without contrast was done and this showed no evidence of strokes, old or acute. He does have mild ischemic changes of his white matter consistent with his age. No further flaccid events occurred while he was here. By description, the likely diagnosis to what he has are: near-syncope or absence spells (seizures). His medications were changed in order to prevent hypotension. He should see a neurologist MEDARDO for EEG testing and further management. He is restricted from driving a vehicle until cleared by a provider. 2) Medication intolerance. Despite stopping his Atenolol, HCTZ and using half the dose of Norvasc, he ran normal blood pressures (in the 120-140s/70s and was even orthostatic. He was discharged with a new medication list. 3) Orthostatic hypotension. Despite medicines being stopped, he had a 20 mmHg drop of systolic blood pressure during postural vital sign checks. He should continue to use the salt replacement tablets and may salt his food. Compression knee-high stockings should also be prescribed to use when he is awake, off at at bedtime. 4) Protein calorie malnutrition, severe. This patient has lost 43 pounds in 5 months, one of several criteria for severe malnutrition. The patient was seen by a dietitian twice, and dietary recommendations were given to him and his . 5) Diabetes mellitus. Patient's admission glucose was 170. He therefore had an A1c done which was 6.8, consistent with diabetes mellitus. This could be a new diagnosis for him. He potentially gets low blood glucoses, because of his poor calorie intake and malnutrition as above, leading to these flaccid spells. He needs diabetic management therefore. He could come to the diabetic education classes at the [facility]. 6) History of CAD. His troponin blood tests were normal x3 and there were no ischemic EKG changes while here. He should continue his statin. His Amlodipine dose was decreased to 2.5 mg daily 7) Cardiomyopathy. Patient underwent a resting Echo which showed a mildly depressed LVEF of 50%, and a dilated right ventricle also seen. He should remain on his daily aspirin. The Atenolol was stopped because of bradycardia in the 50's, which may be leading to these flaccid spells. 8) Hx of GERD. His stomach medication was continued while here. 9) History of hyperlipidemia. Patient had fasting glucoses done that showed good control: Total cholesterol 130, LDL 80, Triglycerides 94. He should inna nue his statin medication. 10) Urinary symptoms. His Flomax and Methenamine were not advised to be changed if they help. - CONSULTS | PROCEDURES Consultations: None Procedures: Brain CT Brain MRI Echo We did not repeat the carotid Doppler which was reportedly done recently at [facility]. We requested the results of that carotid Doppler and the entire discharge summary. We got no reports from [facility] whatsoever. - HOSPITAL COURSE Hospital Course: See above - ALLERGIES Allergies/Adverse Reactions: Allergies Allergy/AdvReac Type Severity Reaction Status Date / Time No Known Drug Allergies Allergy Verified 03/12/19 18:41 - MEDICATIONS Home Medications: Ambulatory Orders Medication Instructions Recorded Confirmed Aspirin Chewable [St Richard 81 mg PO DAILY 03/09/19 03/12/19 Aspirin] Atorvastatin [Lipitor] 40 mg PO QPM 03/09/19 03/13/19 Lansoprazole 30 mg PO BID 03/09/19 03/12/19 Ascorbic Acid 500 mg PO BID 03/13/19 03/13/19 Methenamine Hippurate [Hiprex] 1 gm PO BID 03/13/19 03/13/19 Sodium Chloride [Salt Tab] 1 gm PO BIDWM 03/13/19 03/13/19 Tamsulosin [Flomax] 0.4 mg PO QPM 03/13/19 03/13/19 amLODIPine [Norvasc] 2.5 mg PO DAILY #0 03/13/19 03/13/19 - PHYSICAL EXAM AT DISCHARGE General Appearance: positive: No acute distress, Alert Eyes Bilateral: positive: Normal inspection, EOMI ENT: positive: ENT inspection nml Neck: positive: Nml inspection, No JVD Respiratory: positive: No respiratory distress, Breath sounds nml Cardiovascular: positive: Regular rate & rhythm Abdomen: positive: Non-tender, No distention Skin: positive: Color nml Extremities: positive: No pedal edema Neurologic/Psychiatric: positive: Other (Poor memory) - LABS Result Diagrams: 03/13/19 05:15 03/13/19 05:15 - DIAGNOSTIC IMAGING Diagnostic Imaging Results: Final report reviewed Diagnostic Imaging Results Comments: Reviewed and summarized above - FOLLOW UP Follow Up: See MARIA A Basilio in follow-up. - TIME SPENT Time Spent in Discharge (Minutes): 50"
[2019-03-13 18:41] VITALS: BP 142/82
[2019-03-13] MEDS ORDERED: ASPIRIN EC 81 MG TABLET PO SCH (21:00)
== END 2019-03-13 18:53 | disposition home or self-care (01) ==
LOC: EDUNIT# → ED 18:33 → MS2 20:15
PROVIDERS: ADMIT Internal Medicine; ATTEND Internal Medicine
DX: G45.9 Transient cerebral ischemic attack, unspecified (principal); I45.10 Unspecified right bundle-branch block; I11.0 Hypertensive heart disease with heart failure; I50.9 Heart failure, unspecified; E11.51 Type 2 diabetes mellitus with diabetic peripheral angiopathy without gangrene; F17.200 Nicotine dependence, unspecified, uncomplicated; Z79.82 Long term (current) use of aspirin
CPT/HCPCS: 36415; 70450; 70553; 80048; 80061; 81003; 83036; 83690; 85025; 93005; 93306; 99284; A9270; A9585; 80053; 80306; 80307; 80320; 80329; 81001; 83721; 84443; 87086; 99283

== ENCOUNTER 2019-04-13 10:36 | Outpatient (CLI) | payer MEDICARE, OTHER ==
[2019-04-13 11:18] LABS: INR 1.2 (0.8-1.2); PT - PROTHROMBIN TIME 13.3 secs (9.9-12.6)
[2019-04-13 11:26] LABS: PARTIAL THROMBOPLASTIN TIME 25.7 secs (24.9-33.3)
[2019-04-13] MEDS ORDERED: BUFFERED LIDOCAINE 10 ML SYRINGE ONE (11:36)
[2019-04-13] MEDS ORDERED: IOTHALAMATE MEGLUMINE 50 ML VIAL ONE (12:15)
[2019-04-13] MEDS ORDERED: BUFFERED LIDOCAINE 10 ML SYRINGE IU ONE (13:19)
[2019-04-13 14:26] LABS: CLARITY,CSF CLEAR (CLEAR); COLOR,CSF COLORLESS (COLORLESS); CSF - GLUCOSE 76 mg/dL (45-70)
[2019-04-13 14:39] LABS: CSF TUBE # CSF TUBE# 1; CSF XANTHOCHROMIA ABSENT (ABSENT); RED BLOOD CELL,CSF 39 /mm^3 (0-1); WHITE BLOOD CELL,CSF 1 /mm^3 (0-5)
--- NOTE | 2019-04-13 14:50 | XRAY Report ---
Reason: ENCEPHALOPATHY Procedure Date: 04/13/2019 Accession Number: [id number] / [id number] Procedure: FL - Spinal Puncture Lumbar CPT Code: FULL RESULT: EXAM: LUMBAR PUNCTURE WITH FLUOROSCOPIC GUIDANCE EXAM DATE: 04/13/2019 01:09 PM. HISTORY: Encephalopathy. COMPARISONS: None. TECHNIQUE: The risks, benefits, and alternatives of the procedure were discussed with the patient. All questions were answered. Written and verbal consent were obtained. The patient was placed in prone position. The site overlying the L4-L5 interspace was marked under fluoroscopy and prepped and draped in a sterile manner. Local anesthesia was performed with 1% lidocaine. A 22-gauge needle was then inserted into the thecal sac at this level. 7 mL of cerebrospinal fluid was then removed. The needle was removed with the stylet in place without immediate complication. Other: None. FINDINGS: Injection: Fluoroscopic images demonstrate needle placement at L4-L5. The cerebrospinal fluid was clear. Opening pressure was not measured. Bones: No fractures or bone lesions in the visualized bones. IMPRESSION: 1. Successful fluoroscopically guided lumbar puncture. RADIA
== END 2019-04-13 10:37 | disposition home or self-care (01) ==
LOC: DI 10:36
PROVIDERS: ATTEND Psychiatry & Neurology Neurology
DX: G93.40 Encephalopathy, unspecified (principal)
CPT/HCPCS: 36415; 62270; 81599; 82945; 84157; 85610; 85730; 86255; 86341; 87070; 87205; 89051

== ENCOUNTER 2019-04-19 09:35 | Outpatient (CLI) | payer MEDICARE, OTHER | END 2019-04-19 09:36 | disposition critical access hospital (66) | LOC: EMS 09:35 | PROVIDERS: ATTEND Surgery | DX: R51 Headache (principal); R41.0 Disorientation, unspecified; R47.81 Slurred speech | CPT/HCPCS: A0425; A0427 ==

== ENCOUNTER 2019-05-05 08:00 | Outpatient (CLI) | payer MEDICARE, OTHER ==
[2019-05-05 19:30] LABS: CALCIUM 9.4 mg/dL (8.5-10.3); CREATININE 0.8 mg/dL (0.6-1.2)
== END 2019-05-05 23:59 | disposition home or self-care (01) ==
LOC: LAB.WCP 08:00
PROVIDERS: ATTEND Physician Assistant
DX: E87.1 Hypo-osmolality and hyponatremia (principal)
CPT/HCPCS: 36415; 80048

== ENCOUNTER 2019-05-19 08:00 | Outpatient (CLI) | payer MEDICARE, OTHER ==
[2019-05-19 19:02] LABS: CALCIUM 8.7 mg/dL (8.5-10.3); CREATININE 0.7 mg/dL (0.6-1.2)
== END 2019-05-19 23:59 | disposition home or self-care (01) ==
LOC: LAB.WCP 08:00
PROVIDERS: ATTEND Physician Assistant
DX: E87.1 Hypo-osmolality and hyponatremia (principal); D64.9 Anemia, unspecified
CPT/HCPCS: 36415; 80048; 82607; 83540; 84466

== ENCOUNTER 2019-06-02 08:00 | Outpatient (CLI) | payer MEDICARE, OTHER ==
[2019-06-02 19:04] LABS: CALCIUM 9.2 mg/dL (8.5-10.3); CREATININE 0.8 mg/dL (0.6-1.2)
== END 2019-06-02 08:01 | disposition home or self-care (01) ==
LOC: LAB.WCP 08:00
PROVIDERS: ATTEND Physician Assistant
DX: E87.1 Hypo-osmolality and hyponatremia (principal); R73.9 Hyperglycemia, unspecified
CPT/HCPCS: 36415; 80048

== ENCOUNTER 2019-07-08 08:00 | Outpatient (CLI) | payer MEDICARE, OTHER ==
[2019-07-08 19:34] LABS: CALCIUM 9.5 mg/dL (8.5-10.3); CREATININE 0.8 mg/dL (0.6-1.2)
== END 2019-07-08 08:01 | disposition home or self-care (01) ==
LOC: LAB.WCP 08:00
PROVIDERS: ATTEND Physician Assistant
DX: E87.1 Hypo-osmolality and hyponatremia (principal)
CPT/HCPCS: 36415; 80048

== ENCOUNTER 2023-09-05 15:30 | Outpatient (CLI) | payer MEDICARE, OTHER ==
[2023-09-05 20:49] LABS: BASOPHILS # (AUTO) 0.1 10^3/uL (0.0-0.1); BASOPHILS % (AUTO) 0.7 %; EOSINOPHILS % (AUTO) 0.3 %; HCT - HEMATOCRIT 37.5 % (42.0-52.0); HGB - HEMOGLOBIN 12.8 g/dL (14.0-18.0); LYMPHOCYTES # (AUTO) 0.8 10^3/uL (1.5-3.5); LYMPHOCYTES % (AUTO) 10.1 %; MEAN CORPUSCULAR HEMOGLOBIN 33.6 pg (27.0-31.0); MEAN CORPUSCULAR HGB CONC 34.1 g/dL (32.0-36.0); MEAN CORPUSCULAR VOLUME 98.4 fL (80.0-94.0); MEAN PLATELET VOLUME 11.3 fL (7.4-11.4); MONOCYTES # (AUTO) 0.6 10^3/uL (0.0-1.0); MONOCYTES % (AUTO) 7.3 %; NEUTROPHILS # (AUTO) 6.2 10^3/uL (1.5-6.6); NEUTROPHILS % (AUTO) 81.3 %; PLT - PLATELET COUNT 131 10^3/uL (130-450); RED BLOOD COUNT 3.81 10^6/uL (4.70-6.10); RED CELL DISTRIBUTION WIDTH 14.6 % (12.0-15.0); WHITE BLOOD COUNT 7.6 x10^3/uL (4.8-10.8)
[2023-09-05 20:56] LABS: ALBUMIN 3.7 g/dL (3.2-5.5)
[2023-09-05 21:13] LABS: THYROID STIMULATING HORMONE 5.01 uIU/mL (0.34-5.60)
[2023-09-05 22:00] LABS: ALBUMIN/GLOBULIN RATIO 1.4 (1.0-2.2); BILIRUBIN,TOTAL 1.6 mg/dL (0.2-1.0); CALCIUM 5.3 mg/dL (8.5-10.3); CREATININE 0.8 mg/dL (0.6-1.3); POTASSIUM 2.9 mmol/L (3.5-4.5); TOTAL PROTEIN 6.3 g/dL (6.4-8.9)
== END 2023-09-05 15:45 | disposition home or self-care (01) ==
LOC: LAB.N 15:30
PROVIDERS: ATTEND Family Medicine
DX: D64.9 Anemia, unspecified (principal); E22.2 Syndrome of inappropriate secretion of antidiuretic hormone; I50.9 Heart failure, unspecified
CPT/HCPCS: 36415; 80053; 83880; 84443; 85025; 85651

== ENCOUNTER 2023-09-05 22:56 | Emergency (ER) | payer MEDICARE, OTHER ==
[2023-09-05] MEDS ORDERED: MAGNESIUM OXIDE 400 MG TABLET PO STA (23:01)
[2023-09-05] MEDS ORDERED: CALCIUM GLUCONATE IN NS 0.9% 2,000 MG/100 ML BAG IV STA (23:02)
[2023-09-05] MEDS ORDERED: POTASSIUM CHLORIDE 20 MEQ/15 ML UDC PO STA (23:02)
[2023-09-05] MEDS ORDERED: POTASSIUM CHLOR 10 MEQ/100 ML 10 MEQ/100 ML BAG IV STA (23:03)
--- NOTE | 2023-09-05 23:20 | ED Physician Documentation ---
History of Present Illness - Stated complaint Stated Complaint: ABNORMAL LABS - Chief complaint Chief Complaint: General - History obtained from History obtained from: Patient - Additonal information Additional information: 82yM with pmh afib on eliquis/metoprolol, cad, chf, chronic anemia, p/w abnormal labs from clinic. patient was seen there today after reporting he was feeling lightheaded, clammy, and having tingling in his extremities since yesterday. patient has not had bloodwork for a long time per his report. denies abdominal pain, fever, back pain nausea or diaphoresis. Review of Systems Constitutional: reports: Fatigue. denies: Fever, Chills Eyes: denies: Loss of vision Ears: denies: Ear pain Nose: denies: Rhinorrhea / runny nose Throat: denies: Sore throat Cardiac: denies: Chest pain / pressure, Palpitations Respiratory: denies: Dyspnea, Cough GI: denies: Abdominal Pain, Nausea, Vomiting, Constipation, Diarrhea : denies: Dysuria, Frequency Musculoskeletal: denies: Back pain PD PAST MEDICAL HISTORY - Past Medical History Past Medical History: Yes Cardiovascular: Congestive heart failure, Hypertension, High cholesterol, Coronary artery disease, Peripheral Vascular Disease, [place] Respiratory: None Neuro: None Endocrine/Autoimmune: Type 2 diabetes GI: GERD : Benign prostate hypertrophy, Nocturia, Frequency HEENT: Other Psych: None Musculoskeletal: None Derm: None - Past Surgical History Past Surgical History: Yes General: Appendectomy Cardiovascular: CABG, Coronary stent, Angioplasty HEENT: Cataracts, Tonsil/Adenoidectomy - Present Medications Home Medications: Ambulatory Orders Medication Instructions Recorded Confirmed Aspirin Chewable [St Richard 81 mg PO DAILY 03/09/19 03/12/19 Aspirin] Atorvastatin [Lipitor] 40 mg PO QPM 03/09/19 03/13/19 Lansoprazole 30 mg PO BID 03/09/19 03/12/19 Ascorbic Acid 500 mg PO BID 03/13/19 03/13/19 Methenamine Hippurate [Hiprex] 1 gm PO BID 03/13/19 03/13/19 Sodium Chloride [Salt Tab] 1 gm PO BIDWM 03/13/19 03/13/19 Tamsulosin [Flomax] 0.4 mg PO QPM 03/13/19 03/13/19 amLODIPine [Norvasc] 2.5 mg PO DAILY #0 03/13/19 03/13/19 Apixaban [Eliquis] 5 mg PO DAILY 09/05/23 Empagliflozin [Jardiance] 10 mg PO DAILY 09/05/23 Isosorbide Mononitrate ER [Imdur] 30 mg PO DAILY 09/05/23 Potassium Chloride [K-Tab ER] 10 meq PO DAILY 09/05/23 Spironolactone [Aldactone] 25 mg PO DAILY 09/05/23 carvediloL [Coreg] 6.25 mg PO DAILY 09/05/23 Calcium Carbonate 650 mg PO QDAC #15 tablet 09/06/23 Magnesium Oxide [Magnesium] 500 mg PO QDAC 15 Days #15 cap 09/06/23 Potassium Chloride [Micro-K] 10 meq PO BIDWM 15 Days #30 tab 09/06/23 - Allergies Allergies/Adverse Reactions: Allergies Allergy/AdvReac Type Severity Reaction Status Date / Time No Known Drug Allergies Allergy Verified 09/05/23 23:12 - Social History Does the pt smoke?: Yes Smoking Status: Current every day smoker Does the pt drink ETOH?: Yes Does the pt have substance abuse?: No - Immunizations Immunizations are current?: No Immunizations: TDAP >10years/unknown - POLST Patient has POLST: Yes POLST Status: DNR PD ED PE NORMAL - Vitals Vital signs reviewed: Yes - General General: Alert and oriented X 3, No acute distress, Well developed/nourished, Other (elderly appearing) - HEENT HEENT: Atraumatic, PERRL, EOMI, Moist mucous membranes, Pharynx benign - Neck Neck: Supple, no meningeal sign - Cardiac Cardiac: RRR - Respiratory Respiratory: No respiratory distress, Clear bilaterally - Abdomen Abdomen: Non tender, Non distended - Back Back: No CVA TTP - Derm Derm: Normal color, Warm and dry Results - Vitals Vitals: Vital Signs - 24 hr 09/05/23 09/05/23 09/06/23 22:57 23:12 01:12 Temperature 36.4 C L Heart Rate 72 69 60 Respiratory 18 16 18 Rate Blood Pressure 107/59 L 112/80 O2 Saturation 95 96 96 09/06/23 03:00 Temperature Heart Rate 61 Respiratory 17 Rate Blood Pressure 113/63 O2 Saturation 96 Oxygen O2 Source Room air - EKG (time done) 2309 EKG releavant findings:: EKG personally interpreted by author of this note. Relevant findings are: Rate: Rate (enter#) (57) Rhythm: Atrial fibrillation Intervals: RBBB Ischemia: Normal ST segments - Labs Labs: Laboratory Tests 09/06/23 09/06/23 02:15 02:15 VBG pH 7.496 H Ionized Calcium YES 0.63 L* Sodium 135 Potassium 3.9 Chloride 99 L Carbon Dioxide 24 Anion Gap 12.0 BUN 16 Creatinine 0.7 Estimated GFR (MDRD) 108 Glucose 162 H Calcium 5.5 L* Magnesium 0.5 L* PD Medical Decision Making - ED course ED course: 82-year-old man presented from clinic with abnormal lab values, found to have hypokalemia, hypocalcemia, anemia that is stable from previous, and elevated T. bili of 1.6. We provided supplemental potassium, magnesium, calcium orally and IV and repeated his labs. His potassium is improved. Patient is asymptomatic at this time. Advised outpatient follow-up with primary care provider to have lab work repeated. Magnesium, calcium, potassium supplements provided. Return precautions given. Departure - Departure Disposition: Home, Self Care Clinical Impression: Hypokalemia, Hypomagnesemia, Hypocalcemia Condition: Stable Instructions: Hypokalemia Dc Prescriptions: Calcium Carbonate 650 mg PO QDAC #15 tablet Magnesium Oxide [Magnesium] 500 mg PO QDAC 15 Days #15 cap Potassium Chloride [Micro-K] 10 meq PO BIDWM 15 Days #30 tab Comments: You were seen in the emergency department for low potassium, magnesium, and calcium. Supplements were sent electronically to your [facility] pharmacy. You also had a high total bilirubin level, which is a nonspecific finding. If you start to experience abdominal pain in the right upper area then please return to the ED because you may need further testing. Please follow-up with your primary care provider and return to the emergency department if you have any new or worsening symptoms or other concerns. Forms: PCP List
[2023-09-06] MEDS ORDERED: POTASSIUM CHLORIDE 20 MEQ/15 ML UDC PO STA (00:38)
[2023-09-06 02:46] LABS: BUN - BLOOD UREA NITROGEN 16 mg/dL (6-20); CALCIUM 5.5 mg/dL (8.5-10.3); CARBON DIOXIDE - CO2 24 mmol/L (21-32); CHLORIDE 99 mmol/L (101-111); CREATININE 0.7 mg/dL (0.6-1.3); GFR - MDRD 108 (>89); GLUCOSE 162 mg/dL (74-104); IONIZED CALCIUM IF INDICATED YES; MAGNESIUM 0.5 mg/dL (1.7-2.3); POTASSIUM 3.9 mmol/L (3.5-4.5); SODIUM 135 mmol/L (135-145)
[2023-09-06 02:47] LABS: VBG PH 7.496 (7.31-7.41)
[2023-09-06] MEDS ORDERED: MAGNESIUM OXIDE 400 MG TABLET PO STA (02:47)
[2023-09-06 02:48] LABS: CALCIUM, IONIZED 0.63 mmol/L (1.15-1.33)
[2023-09-06] MEDS ORDERED: CALCIUM GLUCONATE IN NS 0.9% 2,000 MG/100 ML BAG IV STA (02:48)
[2023-09-06 04:30] VITALS: BP 118/63; O2SAT 95
== END 2023-09-06 04:23 | disposition home or self-care (01) ==
LOC: ED 22:56
DX: E87.6 Hypokalemia (principal); E83.42 Hypomagnesemia; E83.51 Hypocalcemia; E80.6 Other disorders of bilirubin metabolism; F17.200 Nicotine dependence, unspecified, uncomplicated
CPT/HCPCS: 36415; 80048; 80053; 82330; 83735; 83880; 84443; 85025; 85651; 93005; 96365; 96366; 96368; 99284; A9270

== ENCOUNTER 2024-01-16 21:38 | Outpatient (CLI) | payer MEDICARE, OTHER | END 2024-01-16 23:59 | disposition critical access hospital (66) | LOC: EMS 21:38 | DX: R53.1 Weakness (principal); R29.6 Repeated falls; F32.A Depression, unspecified; Z63.4 Disappearance and death of family member | CPT/HCPCS: A0425; A0429 ==

== ENCOUNTER 2024-01-16 21:58 | Emergency (ER) | payer MEDICARE, OTHER ==
--- NOTE | 2024-01-16 22:16 | ED Physician Documentation ---
History of Present Illness - Stated complaint Stated Complaint: GEN WEAKNESS - Chief complaint Chief Complaint: General - History obtained from History obtained from: Patient - Additonal information Additional information: 83-year-old man presents with generalized weakness for the past several days, progressively worsening. His niece Annabel states that he has not been eating well and has been incredibly inactive since his in October of this year. Patient otherwise completely asymptomatic. frequent falls but without injury or HT. Review of Systems Constitutional: reports: Fatigue. denies: Fever, Chills, Myalgias Nose: denies: Rhinorrhea / runny nose Throat: denies: Sore throat Cardiac: denies: Chest pain / pressure, Palpitations Respiratory: denies: Dyspnea, Cough Skin: denies: Rash Musculoskeletal: denies: Neck pain, Back pain Neurologic: reports: Generalized weakness. denies: Head injury, LOC PD PAST MEDICAL HISTORY - Past Medical History Past Medical History: Yes Cardiovascular: Congestive heart failure, Hypertension, High cholesterol, Coronary artery disease, Peripheral Vascular Disease, [place] Respiratory: None Neuro: None Endocrine/Autoimmune: Type 2 diabetes GI: GERD : Benign prostate hypertrophy, Nocturia, Frequency HEENT: Other Psych: None Musculoskeletal: None Derm: None - Past Surgical History Past Surgical History: Yes General: Appendectomy Cardiovascular: CABG, Coronary stent, Angioplasty HEENT: Cataracts, Tonsil/Adenoidectomy - Present Medications Home Medications: Ambulatory Orders Medication Instructions Recorded Confirmed Aspirin Chewable [St Richard 81 mg PO DAILY 03/09/19 03/12/19 Aspirin] Atorvastatin [Lipitor] 40 mg PO QPM 03/09/19 03/13/19 Lansoprazole 30 mg PO BID 03/09/19 03/12/19 Ascorbic Acid 500 mg PO BID 03/13/19 03/13/19 Methenamine Hippurate [Hiprex] 1 gm PO BID 03/13/19 03/13/19 Sodium Chloride [Salt Tab] 1 gm PO BIDWM 03/13/19 03/13/19 Tamsulosin [Flomax] 0.4 mg PO QPM 03/13/19 03/13/19 amLODIPine [Norvasc] 2.5 mg PO DAILY #0 03/13/19 03/13/19 Apixaban [Eliquis] 5 mg PO DAILY 09/05/23 Empagliflozin [Jardiance] 10 mg PO DAILY 09/05/23 Isosorbide Mononitrate ER [Imdur] 30 mg PO DAILY 09/05/23 Potassium Chloride [K-Tab ER] 10 meq PO DAILY 09/05/23 Spironolactone [Aldactone] 25 mg PO DAILY 09/05/23 carvediloL [Coreg] 6.25 mg PO DAILY 09/05/23 Calcium Carbonate 650 mg PO QDAC #15 tablet 09/06/23 Magnesium Oxide [Magnesium] 500 mg PO QDAC 15 Days #15 cap 09/06/23 Potassium Chloride [Micro-K] 10 meq PO BIDWM 15 Days #30 tab 09/06/23 - Allergies Allergies/Adverse Reactions: Allergies Allergy/AdvReac Type Severity Reaction Status Date / Time No Known Drug Allergies Allergy Verified 01/16/24 22:07 - Social History Does the pt smoke?: Yes Smoking Status: Current every day smoker Does the pt drink ETOH?: Yes Does the pt have substance abuse?: No - Immunizations Immunizations are current?: No Immunizations: TDAP >10years/unknown - POLST Patient has POLST: Yes POLST Status: DNR PD ED PE NORMAL - Vitals Vital signs reviewed: Yes - General General: Alert and oriented X 3, No acute distress, Other (elderly appearing) - HEENT HEENT: Atraumatic, PERRL, EOMI - Neck Neck: Supple, no meningeal sign - Cardiac Cardiac: RRR - Respiratory Respiratory: No respiratory distress, Clear bilaterally - Abdomen Abdomen: Non tender, Non distended - Derm Derm: Normal color, Warm and dry - Neuro Neuro: No motor deficit, No sensory deficit Results - Vitals Vitals: Vital Signs - 24 hr 01/16/24 01/16/24 22:00 22:06 Temperature 36.8 C Heart Rate 62 78 Respiratory 22 18 Rate Blood Pressure 133/87 H 133/78 H O2 Saturation 96 95 Oxygen O2 Source Room air - EKG (time done) 2204 EKG releavant findings:: EKG personally interpreted by author of this note. Relevant findings are: Rate: Rate (enter#) (68) Rhythm: Atrial fibrillation Intervals: RBBB Compare to prior EKG: Unchanged from prior EKG (09/05/23) - Labs Labs: Laboratory Tests 01/16/24 01/16/24 01/16/24 22:02 22:02 22:02 WBC 9.7 RBC 3.72 L Hgb 12.1 L Hct 36.9 L MCV 99.2 H MCH 32.5 H MCHC 32.8 RDW 13.9 Plt Count 140 MPV 10.0 Neut # (Auto) 8.4 H Lymph # (Auto) 0.6 L [place] # (Auto) 0.6 Eos # (Auto) 0.0 Baso # (Auto) 0.0 Absolute Nucleated RBC 0.00 Nucleated RBC % 0.0 PT 16.9 H INR 1.6 H Sodium 135 Potassium 3.5 Chloride 98 L Carbon Dioxide 28 Anion Gap 9.0 BUN 24 H Creatinine 1.0 Estimated GFR (MDRD) 71 L Glucose 150 H Calcium 9.0 Total Bilirubin 1.5 H AST 14 ALT 9 L Alkaline Phosphatase 89 Total Protein 6.3 L Albumin 3.7 Globulin 2.6 Albumin/Globulin Ratio 1.4 Lipase 12 PD Medical Decision Making - ED course ED course: 83-year-old man presents with generalized weakness for the past several days, progressively worsening. His niece Annabel states that he has not been eating well and has been incredibly inactive since his in October of this year. Patient otherwise completely asymptomatic. Screening CBC, abdominal panel, EKG, chest x-ray was ordered and everything looks pretty stable from previous except for the chest x-ray which shows some mild interstitial prominences. patient denies fever, uri sx, cough, soa, cp, leg swelling, pillow orthopnea or JAMES therefore chf exacerbation or infectious process is unlikely. plan to f/u with his pcp on saturday to discuss further options going forward. his niece from [place] is staying with him and will care with him for the time being. return precautions given. Departure - Departure Forms: PCP List
[2024-01-16 22:24] LABS: BASOPHILS % (AUTO) 0.1 %; EOSINOPHILS % (AUTO) 0.1 %; HCT - HEMATOCRIT 36.9 % (42.0-52.0); HGB - HEMOGLOBIN 12.1 g/dL (14.0-18.0); LYMPHOCYTES # (AUTO) 0.6 10^3/uL (1.5-3.5); LYMPHOCYTES % (AUTO) 6.2 %; MEAN CORPUSCULAR HEMOGLOBIN 32.5 pg (27.0-31.0); MEAN CORPUSCULAR HGB CONC 32.8 g/dL (32.0-36.0); MEAN CORPUSCULAR VOLUME 99.2 fL (80.0-94.0); MONOCYTES # (AUTO) 0.6 10^3/uL (0.0-1.0); MONOCYTES % (AUTO) 6.1 %; NEUTROPHILS # (AUTO) 8.4 10^3/uL (1.5-6.6); NEUTROPHILS % (AUTO) 87.2 %; PLT - PLATELET COUNT 140 10^3/uL (130-450); RED BLOOD COUNT 3.72 10^6/uL (4.70-6.10); RED CELL DISTRIBUTION WIDTH 13.9 % (12.0-15.0); WHITE BLOOD COUNT 9.7 x10^3/uL (4.8-10.8)
[2024-01-16 22:28] LABS: INR 1.6 (0.8-1.2); PT - PROTHROMBIN TIME 16.9 secs (9.9-12.6)
[2024-01-16 22:41] LABS: ALBUMIN 3.7 g/dL (3.2-5.5); ALBUMIN/GLOBULIN RATIO 1.4 (1.0-2.2); BILIRUBIN,TOTAL 1.5 mg/dL (0.2-1.0); POTASSIUM 3.5 mmol/L (3.5-4.5); TOTAL PROTEIN 6.3 g/dL (6.4-8.9)
--- NOTE | 2024-01-16 22:59 | XRAY Report ---
PROCEDURE: Chest 1V INDICATIONS: Chest Pain TECHNIQUE: One view of the chest was acquired. COMPARISON: None. FINDINGS: Surgical changes and devices: Multiple median sternotomy wires. Mediastinal surgical clips compatibl e with prior CABG. Lungs and pleura: Diffuse interstitial prominence. Perihilar airway thickening. Mild loss of vascula r distinctness. Small right pleural effusion. No pneumothorax. Mediastinum: Mediastinal contours appear normal. Heart size is enlarged. Bones and chest wall: No suspicious bony lesions. Overlying soft tissues appear unremarkable. IMPRESSION: Cardiomegaly with findings suggestive of pulmonary edema/CHF. Concurrent infectious or inflammatory p rocess not excluded if clinically appropriate. No dense focal consolidation seen. Reviewed by: Guy Lee MD on 01/16/2024 10:58 PM PDT Approved by: Guy Lee MD on 01/16/2024 10:58 PM PDT Station ID: [id number]
[2024-01-16 23:23] VITALS: O2SAT 98
[2024-01-17 00:24] VITALS: BP 146/80
== END 2024-01-17 00:21 | disposition home or self-care (01) ==
LOC: EDUNIT# → ED 21:58
DX: R53.1 Weakness (principal); I48.91 Unspecified atrial fibrillation; I11.0 Hypertensive heart disease with heart failure; I50.9 Heart failure, unspecified; E78.00 Pure hypercholesterolemia, unspecified; E11.9 Type 2 diabetes mellitus without complications; I25.10 Atherosclerotic heart disease of native coronary artery without angina pectoris; Z95.1 Presence of aortocoronary bypass graft; Z79.82 Long term (current) use of aspirin; Z79.01 Long term (current) use of anticoagulants
CPT/HCPCS: 36415; 80053; 83690; 83735; 85025; 85610; 93005; 99284

== ENCOUNTER 2024-01-21 06:35 | Outpatient (CLI) | payer MEDICARE, OTHER | END 2024-01-21 23:59 | disposition EMS.NT | LOC: EMS 06:35 | DX: Z03.89 Encounter for observation for other suspected diseases and conditions ruled out (principal) ==

== ENCOUNTER 2024-01-21 13:01 | Outpatient (CLI) | payer MEDICARE, OTHER | END 2024-01-21 23:47 | disposition EMS.NT | LOC: EMS 13:01 | DX: Z03.89 Encounter for observation for other suspected diseases and conditions ruled out (principal) ==

== ENCOUNTER 2024-01-27 00:31 | Outpatient (CLI) | payer MEDICARE, OTHER | END 2024-01-27 23:59 | disposition EMS.NT | LOC: EMS 00:31 | DX: Z03.89 Encounter for observation for other suspected diseases and conditions ruled out (principal) ==